=== PATIENT | male | born 1965 | race Caucasian/White ===

== ENCOUNTER 2016-09-10 14:32 | Inpatient (IN) | payer MEDICAID, OTHER ==
[~2016-09-10] VITALS: Ht 177.8 cm; Wt 116.6 kg
[2016-09-10] VITALS (10 sets, daily range): BP systolic 137–176; BP diastolic 68–107
[~2016-09-10 14:32] MED LIST: LACT20SO2 PO; RIFA550T PO; TRM50T PO; ZIPRASIDONE 20 MG INJ (GEODON) VIAL IM ONE
[2016-09-10] MEDS ORDERED: WATER (STERILE) FOR INJECTION 20 ML ONE (14:33)
--- OUTSIDE RECORDS SUMMARY | 2016-09-10 14:40 | XMS REPORT | Continuity of Care Document ---
Author Author [facility] Organization [facility] Address Unknown Phone Unavailable Care Team Providers Care Rn Clinical Review Name Role Phone PCP Unavailable Source Comments Some departments are not documenting in the electronic medical record. If you do not see the information that you expected, contact Release of Information in the Health Information Management department at [phone] for further assistance in locating additional records.[facility] Active Allergies and Adverse Reactions Not on File Current Medications Not on file Active Problems Not on file Social History Tobacco Use Types Packs/Day Years Used Date Never Assessed Plan of Care Health Maintenance Due Date Last Done Comments Hepatitis C Screening 1964 Physical (Comprehensive) 1971 Exam Pertussis Vaccine 1975 Tetanus Vaccine 1981 Colorectal Cancer 2014 Screening Influenza Vaccine 03/11/2016 Results from Last 3 Months Not on file
[2016-09-10] MEDS ORDERED: ZIPRASIDONE 20 MG INJ (GEODON) VIAL IM ONE (14:45)
[2016-09-10 14:49] LABS: BILIRUBIN,URINE NEGATIVE (NEGATIVE); KETONES,URINE 1+ (NEGATIVE); LEUKOCYTE ESTERASE ,URINE 1+ (NEGATIVE); NITRITE,URINE NEGATIVE (NEGATIVE); PH,URINE 6 (5-9); PROTEIN,URINE 2+ (NEGATIVE); UROBILINOGEN,URINE 8 MG/DL (NORMAL)
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
[2016-09-10 15:00] LABS: BASOPHILS % (AUTO) 0 % (0-10); EOSINOPHILS % (AUTO) 0 % (0-10); LYMPHOCYTES # (AUTO) 0.3 X 10^3 (1.0-4.0); LYMPHOCYTES % (AUTO) 3 % (12-44); MEAN CORPUSCULAR HEMOGLOBIN 32 PG (25-34); MEAN CORPUSCULAR HGB CONC 36 G/DL (32-36); MEAN CORPUSCULAR VOLUME 88 FL (80-99); MEAN PLATELET VOLUME 11.2 FL (7.4-10.4); MONOCYTES # (AUTO) 0.8 X 10^3 (0.0-1.0); MONOCYTES % (AUTO) 6 % (0-12); NEUTROPHILS # (AUTO) 12.1 X 10^3 (1.8-7.8); NEUTROPHILS % (AUTO) 91 % (42-75); PLATELET COUNT 45 10^3/uL (130-400); RED BLOOD COUNT 5.31 10^6/uL (4.35-5.85); RED CELL DISTRIBUTION WIDTH 15.8 % (10.0-14.5); WHITE BLOOD COUNT 13.3 10^3/uL (4.3-11.0)
[2016-09-10 15:07] LABS: ALANINE AMINOTRANSFERASE 29 U/L (0-55); ALBUMIN 3.2 G/DL (3.2-4.5); AMMONIA 306 UMOL/L (11-32); ANION GAP 14 MMOL/L (5-14); ASPARTATE AMINO TRANSFERASE 53 U/L (5-34); BILIRUBIN,TOTAL 5.1 MG/DL (0.1-1.0); BLOOD UREA NITROGEN 15 MG/DL (7-18); BUN/CREATININE RATIO 16; CALCIUM 7.4 MG/DL (8.5-10.1); CARBON DIOXIDE 16 MMOL/L (21-32); CHLORIDE 110 MMOL/L (98-107); CREATININE SERUM 0.91 MG/DL (0.60-1.30); GFR ESTIMATED > 60; GLUCOSE 139 MG/DL (70-105); SALICYLATE < 5.0 MG/DL (5.0-20.0); SODIUM 140 MMOL/L (135-145); TOTAL PROTEIN 6.9 G/DL (6.4-8.2)
[2016-09-10 15:13] LABS: TROPONIN I < 0.30 NG/ML (<0.30)
[2016-09-10 15:15] LABS: BAND NEUTROPHILS 17 %; BASOPHILS % (MANUAL) 1 %; EOSINOPHILS % (MANUAL) 0 %; LYMPHOCYTES % (MANUAL) 1 %; NEUTROPHILS % (MANUAL) 76 %
[2016-09-10 15:17] LABS: ACETAMINOPHEN < 10 UG/ML (10-30); ALCOHOL < 10 MG/DL (<10)
[2016-09-10 15:18] LABS: POTASSIUM 5.3 MMOL/L (3.6-5.0)
--- NOTE | 2016-09-10 15:26 | Diagnostic Imaging Report ---
PROCEDURE: CT head without contrast. TECHNIQUE: Multiple contiguous axial images were obtained through the brain without the use of intravenous contrast. INDICATION: Altered mental state. FINDINGS: There is considerable motion artifact. Exam was repeated. The ventricles are not dilated. Cortical gyral pattern is normal. No intracranial hemorrhage is demonstrated. No mass effect is noted. Basal cisterns are clear. Mastoid air cells and paranasal sinuses are clear. No evidence of calvarial fractures. IMPRESSION: Limited study due to motion though no obvious abnormalities are demonstrated. Dictated by: Dictated on workstation # [id number]
--- NOTE | 2016-09-10 15:33 | Diagnostic Imaging Report ---
INDICATION: Unresponsive. COMPARISON: 10/31/2015. FINDINGS: Portable chest shows the lungs to be well-aerated. There are no infiltrates. No masses. The heart is not enlarged. There is no evidence of pulmonary edema. No pneumothorax or pleural effusions. IMPRESSION: Normal portable chest. Dictated by: Dictated on workstation # [id number]
[2016-09-10 16:12] LABS: INR 1.5 (0.8-1.4); PROTHROMBIN TIME PATIENT 17.8 SEC (12.2-14.7)
[2016-09-10] MEDS ORDERED: cefTRIAXone 2 GM/NS 50 ML IVPB IV SCH ×2 (17:30)
[2016-09-10 17:36] LABS: ABG OXYGEN SATURATION 97 % (94-100); ABG PCO2 26 MMHG (35-45); ABG PH 7.45 (7.37-7.43); ABG PO2 79 MMHG (79-93); ABG TCO2 17.9 MMOL/L (21.0-31.0)
[2016-09-10 17:39] LABS: ABG HCO3 17 MMOL/L (23-27)
[2016-09-10 17:40] LABS: ALLENS TEST POSITIVE
[2016-09-10 17:42] LABS: PATIENT TEMP 99.8
[2016-09-10] MEDS ORDERED: ZIPRASIDONE 20 MG INJ (GEODON) VIAL IM PRN (17:45)
[2016-09-10] MEDS ORDERED: CATHETER FLUSH 10 ML SYR IV PRN (17:45)
[2016-09-10] MEDS ORDERED: NS IV 1000 ML 1,000 ML IV ONE ×2 (17:45→19:00)
[2016-09-10] MEDS ORDERED: proPOfol 200 MG/20 ML (DIPRIVAN) VIAL IV ONE (19:28)
[2016-09-10] MEDS: inSUlin ASPART (NovoLOG) 1 UNIT/0.01 ML (CHARGE PER UNIT) SC SCH (20:00)
[2016-09-10] MEDS: PROPOFOL DRIP (ICU) 100 ML IV SCH (20:15)
[2016-09-10] MEDS: D5 NS 1000 ML IV SOLUTION 1,000 ML IV SCH (20:15)
[2016-09-10] MEDS: LACTULOSE SYRUP 10GM/15ML (ENULOSE) 30ML UDC PO SCH ×2 (20:22→21:00)
[2016-09-10] MEDS: fentaNYL INJECTION 100 MCG/2 ML AMP IV PRN (20:23)
[2016-09-10] MEDS ORDERED: FLU TRIvalent (5 YOA+) 2016-17 (AFLURIA) 0.5 ML IM ONE (20:45)
[2016-09-10 20:49] LABS: ABG BASE EXCESS -4.9 MMOL/L (-2.5-2.5); ABG HCO3 19 MMOL/L (23-27); ABG OXYGEN SATURATION 98 % (94-100); ABG PCO2 35 MMHG (35-45); ABG PH 7.37 (7.37-7.43); ABG PO2 113 MMHG (79-93); ABG TCO2 20.4 MMOL/L (21.0-31.0)
[2016-09-10 20:52] LABS: ALLENS TEST POSITIVE; PATIENT TEMP 99.7
--- NOTE | 2016-09-10 20:58 | Diagnostic Imaging Report ---
INDICATION: Status post intubation. COMPARISON: Earlier the same day. EXAMINATION: Single frontal radiographic view of the chest was obtained. FINDINGS: Indwelling endotracheal tube with tip at the clavicular heads. Lungs continue to show low inspiratory volumes. Aeration is otherwise stable. Cardiac silhouette and pulmonary vasculature are stable as well. There is no pneumothorax. Bony structures show no gross acute abnormality. IMPRESSION: Interval intubation with endotracheal tube, as above. Otherwise, stable exam of the chest. Dictated by: Dictated on workstation # [id number]
[2016-09-10] MEDS: CHLORHEXIDINE 0.12% SOLN 15 ML (PERIDEX) UDC PO SCH (21:50)
[2016-09-10] MEDS ORDERED: MIDAZOLAM 5 MG/5 ML (VERSED) VIAL INJ ONE (23:00)
[2016-09-10] MEDS ORDERED: SUCCINYLCHOLINE INJ 100 MG/5 ML SYR INJ ONE (23:00)
[2016-09-11] VITALS (34 sets, daily range): BP systolic 102–166; BP diastolic 57–86
[2016-09-11] MEDS: inSUlin ASPART (NovoLOG) 1 UNIT/0.01 ML (CHARGE PER UNIT) SC SCH ×7 (00:25→23:57)
[2016-09-11] MEDS: RIFAXIMIN 550 MG TABLET (XIFAXAN) PO SCH ×3 (00:31→20:28)
[2016-09-11] MEDS: PROPOFOL DRIP (ICU) 100 ML IV SCH ×3 (00:56→20:26)
[2016-09-11] MEDS: D5 NS 1000 ML IV SOLUTION 1,000 ML IV SCH ×3 (03:22→19:07)
[2016-09-11] MEDS ORDERED: KETOROLAC 30 MG/ML VIAL ONE (04:07)
[2016-09-11] MEDS ORDERED: KETOROLAC 30 MG/ML VIAL IVP ONE (04:15)
[2016-09-11 04:16] LABS: BASOPHILS % (AUTO) 0 % (0-10); EOSINOPHILS % (AUTO) 0 % (0-10); LYMPHOCYTES # (AUTO) 0.5 X 10^3 (1.0-4.0); LYMPHOCYTES % (AUTO) 4 % (12-44); MEAN CORPUSCULAR HEMOGLOBIN 32 PG (25-34); MEAN CORPUSCULAR HGB CONC 36 G/DL (32-36); MEAN CORPUSCULAR VOLUME 89 FL (80-99); MEAN PLATELET VOLUME 10.9 FL (7.4-10.4); MONOCYTES # (AUTO) 0.7 X 10^3 (0.0-1.0); MONOCYTES % (AUTO) 7 % (0-12); NEUTROPHILS % (AUTO) 89 % (42-75); RED BLOOD COUNT 4.67 10^6/uL (4.35-5.85); RED CELL DISTRIBUTION WIDTH 15.9 % (10.0-14.5); WHITE BLOOD COUNT 11.2 10^3/uL (4.3-11.0)
[2016-09-11 04:19] LABS: ABG BASE EXCESS -3.8 MMOL/L (-2.5-2.5); ABG HCO3 20 MMOL/L (23-27); ABG OXYGEN SATURATION 100 % (94-100); ABG PCO2 39 MMHG (35-45); ABG PH 7.36 (7.37-7.43); ABG PO2 181 MMHG (79-93); ABG TCO2 21.3 MMOL/L (21.0-31.0)
[2016-09-11 04:22] LABS: ALLENS TEST ART LINE
[2016-09-11 04:23] LABS: PATIENT TEMP 103.3; PLATELET COUNT 40 10^3/uL (130-400)
[2016-09-11 04:26] LABS: INR 1.8 (0.8-1.4); PROTHROMBIN TIME PATIENT 20.9 SEC (12.2-14.7)
[2016-09-11 04:35] LABS: BILIRUBIN,URINE 1+ (NEGATIVE); KETONES,URINE 1+ (NEGATIVE); LEUKOCYTE ESTERASE ,URINE 2+ (NEGATIVE); NITRITE,URINE POSITIVE (NEGATIVE); PH,URINE 5 (5-9); PROTEIN,URINE 3+ (NEGATIVE); UROBILINOGEN,URINE 1 MG/DL (NORMAL)
[2016-09-11 04:37] LABS: ALANINE AMINOTRANSFERASE 32 U/L (0-55); ALBUMIN 2.6 G/DL (3.2-4.5); AMMONIA 93 UMOL/L (11-32); ANION GAP 8 MMOL/L (5-14); ASPARTATE AMINO TRANSFERASE 64 U/L (5-34); BILIRUBIN,TOTAL 4.4 MG/DL (0.1-1.0); BLOOD UREA NITROGEN 19 MG/DL (7-18); BUN/CREATININE RATIO 19; CALCIUM 7.1 MG/DL (8.5-10.1); CARBON DIOXIDE 18 MMOL/L (21-32); CHLORIDE 116 MMOL/L (98-107); CREATININE SERUM 0.98 MG/DL (0.60-1.30); GFR ESTIMATED > 60; GLUCOSE 127 MG/DL (70-105); MAGNESIUM 1.7 MG/DL (1.8-2.4); PHOSPHORUS 3.7 MG/DL (2.3-4.7); POTASSIUM 4.4 MMOL/L (3.6-5.0); SODIUM 142 MMOL/L (135-145); TOTAL PROTEIN 5.6 G/DL (6.4-8.2)
[2016-09-11 04:37] LABS: SQUAMOUS EPITHELIAL CELL,UR RARE /HPF; WBC,URINE 0-2 /HPF
[2016-09-11 04:43] LABS: TROPONIN I < 0.30 NG/ML (<0.30)
[2016-09-11] MEDS ORDERED: NS (IVPB) 100 ML ONE (05:57)
[2016-09-11] MEDS ORDERED: CALCIUM GLUC. 10% 4.65 MEQ/10 ML VIAL ONE (05:57)
[2016-09-11] MEDS ORDERED: NS IV ONE ×4 (06:00)
[2016-09-11] MEDS: POTASSIUM CL 10MEQ/50ML IVPB 50 ML IV SCH (06:00)
[2016-09-11] MEDS: KCL 20 MEQ TAB (K-DUR) PO SCH (06:00)
[2016-09-11] MEDS: MAGNESIUM 1 GM/100 ML IVPB 100 ML IV SCH ×3 (06:00→07:05)
[2016-09-11] MEDS ORDERED: CALCIUM GLUCONATE IV ONE ×4 (06:00)
[2016-09-11] MEDS ORDERED: NS IV 1000 ML 1,000 ML ONE (08:30)
[2016-09-11] MEDS: LACTULOSE SYRUP 10GM/15ML (ENULOSE) 30ML UDC PO SCH ×3 (08:48→20:28)
[2016-09-11] MEDS: CHLORHEXIDINE 0.12% SOLN 15 ML (PERIDEX) UDC PO SCH ×2 (08:48→20:28)
--- NOTE | 2016-09-11 09:45 | Diagnostic Imaging Report ---
EXAMINATION: Chest radiograph, portable AP view. DATE: September 11, 2016 at 0449 hours. INDICATION: 51-year-old male, dyspnea. COMPARISON: September 10, 2016. FINDINGS: The endotracheal tube is approximately 3.6 cm above the lisa. The nasogastric tube overlies the expected position of the stomach. Stable overall appearance of the cardiomediastinal silhouette accounting for differences in patient positioning and technique. There is no identified pneumothorax. There is no large pleural effusion. There is no identified focal airspace consolidation. Lung volumes are somewhat low. IMPRESSION: 1. Low lung volumes without identified acute cardiopulmonary abnormality. 2. Support lines and tubes as above. Dictated by: Dictated on workstation # [id number]
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
--- NOTE | 2016-09-11 12:18 | Progress Note-Standard ---
Standard Progress Note Final Diagnosis Consulted for intubation and arterial line placement per [facility]. Arrived at bedside pt with labored breathing. Consent signed after discussion with family present in room. Versed 2 mg IV, Propofol 100mg IV, Sux 40 mg IV given followed by grade 1 view and atraumatic placement of 7.5 ETT. +ETCO2, nadia chest rise and breath sounds. VSS. 20 gauge a-line placed to right radial taped and secured theresa well. Report to ICU nurse. HUA GALINDO CRNA Sep 11, 2016 12:18
[2016-09-11] MEDS: cefTRIAXone INJECTION 2,000 MG in NS (IVPB) 50 ML IV SCH (18:10)
[2016-09-11] MEDS ORDERED: LACT20SO2 PO (19:07)
[2016-09-12] VITALS (35 sets, daily range): BP systolic 94–159; BP diastolic 46–79
[2016-09-12] MEDS: PROPOFOL DRIP (ICU) 100 ML IV SCH ×5 (01:22→22:49)
[2016-09-12] MEDS: D5 NS 1000 ML IV SOLUTION 1,000 ML IV SCH ×3 (03:10→19:58)
[2016-09-12] MEDS: inSUlin ASPART (NovoLOG) 1 UNIT/0.01 ML (CHARGE PER UNIT) SC SCH ×5 (04:00→20:00)
[2016-09-12 04:30] LABS: ABG BASE EXCESS -2.8 MMOL/L (-2.5-2.5); ABG HCO3 22 MMOL/L (23-27); ABG OXYGEN SATURATION 99 % (94-100); ABG PCO2 43 MMHG (35-45); ABG PO2 138 MMHG (79-93); ABG TCO2 23.3 MMOL/L (21.0-31.0)
[2016-09-12 04:31] LABS: ALLENS TEST ART LINE; PATIENT TEMP 100.3
[2016-09-12 04:33] LABS: ABG PH 7.33 (7.37-7.43)
[2016-09-12 04:38] LABS: ANION GAP 6 MMOL/L (5-14); BLOOD UREA NITROGEN 26 MG/DL (7-18); BUN/CREATININE RATIO 24; CALCIUM 7.3 MG/DL (8.5-10.1); CARBON DIOXIDE 19 MMOL/L (21-32); CHLORIDE 117 MMOL/L (98-107); GFR ESTIMATED > 60; GLUCOSE 122 MG/DL (70-105); PHOSPHORUS 2.5 MG/DL (2.3-4.7); POTASSIUM 4.2 MMOL/L (3.6-5.0); SODIUM 142 MMOL/L (135-145)
[2016-09-12 04:42] LABS: BASOPHILS % (AUTO) 0 % (0-10); EOSINOPHILS # (AUTO) 0.3 10^3/uL (0.0-0.3); EOSINOPHILS % (AUTO) 3 % (0-10); LYMPHOCYTES % (AUTO) 11 % (12-44); MEAN CORPUSCULAR HEMOGLOBIN 32 PG (25-34); MEAN CORPUSCULAR HGB CONC 35 G/DL (32-36); MEAN CORPUSCULAR VOLUME 91 FL (80-99); MEAN PLATELET VOLUME 10.5 FL (7.4-10.4); MONOCYTES # (AUTO) 1.1 X 10^3 (0.0-1.0); MONOCYTES % (AUTO) 11 % (0-12); NEUTROPHILS # (AUTO) 7.1 X 10^3 (1.8-7.8); NEUTROPHILS % (AUTO) 75 % (42-75); RED BLOOD COUNT 4.33 10^6/uL (4.35-5.85); WHITE BLOOD COUNT 9.5 10^3/uL (4.3-11.0)
[2016-09-12 04:46] LABS: PLATELET COUNT 29 10^3/uL (130-400)
[2016-09-12] MEDS: MAGNESIUM 1 GM/100 ML IVPB 100 ML IV SCH (04:51)
[2016-09-12] MEDS: POTASSIUM CL 10MEQ/50ML IVPB 50 ML IV SCH (04:51)
[2016-09-12] MEDS: KCL 20 MEQ TAB (K-DUR) PO SCH (04:52)
[2016-09-12] MEDS: CHLORHEXIDINE 0.12% SOLN 15 ML (PERIDEX) UDC PO SCH ×2 (08:39→21:53)
[2016-09-12] MEDS: LACTULOSE SYRUP 10GM/15ML (ENULOSE) 30ML UDC PO SCH ×3 (08:39→21:53)
[2016-09-12] MEDS: RIFAXIMIN 550 MG TABLET (XIFAXAN) PO SCH ×2 (08:39→21:53)
--- NOTE | 2016-09-12 10:49 | Diagnostic Imaging Report ---
INDICATION: Dyspnea. Comparison made with prior examination from 09/11/16. FINDINGS: There's cardiomegaly. There is mild venous congestion. ET and NG tubes are in satisfactory position. There is some right basilar atelectasis and/or pneumonitis. There is no pleural effusion or pneumothorax. IMPRESSION: Right basilar subsegmental atelectasis and/or pneumonitis. Cardiomegaly and mild central pulmonary venous congestion. Dictated by: Dictated on workstation # [id number]
--- NOTE | 2016-09-12 14:15 | Progress Note-Hospitalist ---
Standard Progress Note Progress Notes/Assess & Plan Date Seen 09/12/16 Diagnosis Hepatic encephalopathy, presenting ammonia 306. 2.acute on chronic alcoholism with acute liver failure 3.generalized bleeding secondary to effective liver disease on clotting factors. Assess & Plan/Chief Complaint The patient was taken off his sedatives's morning in a hope to test for possibility of ventilator weaning. He thrashed about terribly without evidence of orientation and was therefore placed back on sedation. His vital signs look reasonably good. He has resolved his fever issues. It would be my guess that these were relative to his encephalopathy. Hemoglobin remained stable. White count was 9500. Platelets were noted to be 29,000. The external evidence of bleeding appears much less. Physical exam: The patient is deeply somnolent. Lungs are clear to auscultation. CV was regular without murmur. Abdomen was soft without pain to palpation. 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 Supportive care. Labs Laboratory Tests 09/10/16 14:30 09/11/16 04:00 09/12/16 04:00 MAURA LANG MD Sep 12, 2016 14:15
[2016-09-12] MEDS: cefTRIAXone INJECTION 2,000 MG in NS (IVPB) 50 ML IV SCH (17:39)
[2016-09-12] MEDS: fentaNYL INJECTION 100 MCG/2 ML AMP IV PRN (21:57)
[2016-09-13] VITALS (26 sets, daily range): BP systolic 95–165; BP diastolic 53–80
[2016-09-13] MEDS: fentaNYL INJECTION 100 MCG/2 ML AMP IV PRN ×8 (00:03→16:25)
[2016-09-13] MEDS: D5 NS 1000 ML IV SOLUTION 1,000 ML IV SCH ×2 (03:53→11:52)
[2016-09-13] MEDS: inSUlin ASPART (NovoLOG) 1 UNIT/0.01 ML (CHARGE PER UNIT) SC SCH ×4 (03:58→13:46)
[2016-09-13] MEDS: PROPOFOL DRIP (ICU) 100 ML IV SCH ×3 (04:30→14:27)
[2016-09-13 04:36] LABS: ABG BASE EXCESS -1.4 MMOL/L (-2.5-2.5); ABG HCO3 23 MMOL/L (23-27); ABG OXYGEN SATURATION 93 % (94-100); ABG PCO2 38 MMHG (35-45); ABG PH 7.39 (7.37-7.43); ABG PO2 57 MMHG (79-93); ABG TCO2 23.9 MMOL/L (21.0-31.0)
[2016-09-13 04:38] LABS: ALLENS TEST ART LINE
[2016-09-13 04:41] LABS: BASOPHILS % (AUTO) 0 % (0-10); EOSINOPHILS # (AUTO) 0.3 10^3/uL (0.0-0.3); EOSINOPHILS % (AUTO) 6 % (0-10); LYMPHOCYTES # (AUTO) 0.8 X 10^3 (1.0-4.0); LYMPHOCYTES % (AUTO) 16 % (12-44); MEAN CORPUSCULAR HEMOGLOBIN 32 PG (25-34); MEAN CORPUSCULAR HGB CONC 35 G/DL (32-36); MEAN CORPUSCULAR VOLUME 91 FL (80-99); MEAN PLATELET VOLUME 10.8 FL (7.4-10.4); MONOCYTES # (AUTO) 0.5 X 10^3 (0.0-1.0); MONOCYTES % (AUTO) 11 % (0-12); NEUTROPHILS # (AUTO) 3.3 X 10^3 (1.8-7.8); NEUTROPHILS % (AUTO) 67 % (42-75); RED BLOOD COUNT 3.85 10^6/uL (4.35-5.85); RED CELL DISTRIBUTION WIDTH 15.6 % (10.0-14.5); WHITE BLOOD COUNT 4.9 10^3/uL (4.3-11.0)
[2016-09-13 04:45] LABS: INR 1.6 (0.8-1.4); PROTHROMBIN TIME PATIENT 18.7 SEC (12.2-14.7)
[2016-09-13 04:48] LABS: PLATELET COUNT 29 10^3/uL (130-400)
[2016-09-13 05:02] LABS: ALANINE AMINOTRANSFERASE 40 U/L (0-55); AMMONIA 64 UMOL/L (11-32); ANION GAP 5 MMOL/L (5-14); ASPARTATE AMINO TRANSFERASE 80 U/L (5-34); BILIRUBIN,TOTAL 3.7 MG/DL (0.1-1.0); BLOOD UREA NITROGEN 17 MG/DL (7-18); BUN/CREATININE RATIO 21; CARBON DIOXIDE 21 MMOL/L (21-32); CHLORIDE 117 MMOL/L (98-107); GFR ESTIMATED > 60; GLUCOSE 98 MG/DL (70-105); MAGNESIUM 2.2 MG/DL (1.8-2.4); PHOSPHORUS 2.3 MG/DL (2.3-4.7); POTASSIUM 3.8 MMOL/L (3.6-5.0); SODIUM 143 MMOL/L (135-145); TOTAL PROTEIN 4.6 G/DL (6.4-8.2)
[2016-09-13] MEDS: POTASSIUM CL 10MEQ/50ML IVPB 50 ML IV SCH (05:55)
[2016-09-13] MEDS: KCL 20 MEQ TAB (K-DUR) PO SCH (05:56)
[2016-09-13] MEDS: MAGNESIUM 1 GM/100 ML IVPB 100 ML IV SCH (05:56)
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
[2016-09-13] MEDS: RIFAXIMIN 550 MG TABLET (XIFAXAN) PO SCH (09:56)
[2016-09-13] MEDS: CHLORHEXIDINE 0.12% SOLN 15 ML (PERIDEX) UDC PO SCH (09:56)
[2016-09-13] MEDS: LACTULOSE SYRUP 10GM/15ML (ENULOSE) 30ML UDC PO SCH ×2 (09:56→13:46)
--- NOTE | 2016-09-13 10:46 | Diagnostic Imaging Report ---
Portable erect AP chest at 4:55 AM. INDICATION: Respiratory distress. The heart is enlarged but stable when compared to 09/12/2016. The atelectasis/infiltrate involving the right lung base seen on the prior study has diminished. There is only a small amount of residual density still present in this area. Mild left lower lobe atelectasis/infiltrate is also seen. This is essentially no different than on the prior exam. The upper lungs are clear. The central pulmonary vascularity does not seem to be engorged at this time, and there is no evidence for failure. Mediastinum is not widened. The osseous structures are intact. The ET tube and NG line remain in good position. IMPRESSION: The appearance of the chest has improved somewhat since the prior exam as the right lung base does seem better aerated. There is still mild bibasilar atelectasis/infiltrate. A followup study would be recommended for continued evaluation. Dictated by: Dictated on workstation # [id number]
[2016-09-13] MEDS ORDERED: PANTOPRAZOLE 40 MG/10 ML (PROTONIX) VIAL IV SCH (11:00)
--- NOTE | 2016-09-13 11:06 | Progress Note-Hospitalist ---
Progress Note HPI/CC on Admission The patient is a 51-year-old white male alcoholic known to me from a visit almost one year ago. He presented to the emergency room last night began with a distinct decline in alertness plus agitated behavior. This was egregious enough that he had to be given Geodon for the protection of himself and the staff. Laboratory by my count with his behavior, moderate ascites, bilirubin of 4.4, albumin of 2.6, and INR of 1.8 was consistent with a child. CONTEH liver score of 14 and therefore class C. He was unfortunately intubated during the night. He has begun to show leading from all orifices. He appears agonal. Progress Notes/Assess & Plan Date Seen 09/13/16 Diagonsis/Assessment & Plan Chart Review: Platelets 29k Ammonia 306 sales service professional: RN states that family is unhappy with DNR decision and has stated they are not satisfied with care given to pt, although all measures have been taken to stabilize pt, and pt is in end of life transition. Palliative care has been consulted. Pt is intubated. Dr. Robles spoke with Dr. Arnold regarding pt. Pt family discussion: Dr. Ospina discusses pt's condition with pt's daughters. Daughters are distressed with pt's current state, and are concerned regarding his recovery. Dr. Ospina informs daughters that pt's liver is in failure, and that transplant is not a viable option at this point. Daughter states that pt previously stated that he wished to be full code status. However, daughters have decided that they wish to focus on quality of life for pt, and do not wish to switch pt back to full code if it will result in an uncomfortable state. Dr. Ospina and palliative care discuss the difficulties in predicting pt prognosis, but inform daughters that pt is overall highly unstable and without a simple solution. Daughters will need to call their uncle and other family members, and will do so today. Daughters are very appreciative. Vitals stable, patient in suffering status off sedation and no purposeful movements or response dictating no cognitive ability due to encephalopathy and end-stage liver disease Tachycardic at 96 bpm, coarse breath sounds all chapa Assessment: End-stage liver disease with liver failure Severe thrombocytopenia giving rise to gastrointestinal bleeding Severe hepatic encephalopathy with unrecoverable status Plan: Palliative care [facility] Scribed by Zuhair Coates under the direct supervision of Dr. Ospina. SHELL OSPINA DO Sep 13, 2016 11:06
[2016-09-13] MEDS ORDERED: NS IV 1000 ML 1,000 ML IV PRN (16:55)
[2016-09-13] MEDS ORDERED: NS IV 1000 ML 1,000 ML IV SCH (16:55)
[2016-09-13] MEDS ORDERED: ONDANSETRON 4 MG/2 ML (SDV) Z0FRAN IV PRN (17:00)
[2016-09-13] MEDS ORDERED: ACETAMINOPHEN 650 MG SUPP (TYLENOL) PR PRN (17:00)
[2016-09-13] MEDS ORDERED: RT-ALBUTEROL/IPRATROPIUM 3 ML (DUONEB) VIAL INH PRN (17:00)
[2016-09-13] MEDS ORDERED: SALIVA STIMULANT MOUTH SPRAY (BIOTENE) 1.5 OZ MM PRN (17:00)
[2016-09-13] MEDS ORDERED: GLYCOPYRROLATE 0.2 MG/ML (ROBINUL) 2 ML VIAL IV PRN (17:00)
[2016-09-13] MEDS ORDERED: ARTIFICIAL TEARS OINT (LACRI-LUBE) 3.5 GM TUBE OU PRN (17:00)
[2016-09-13] MEDS ORDERED: diphenhydrAMINE 50 MG/ML INJ (BENADRYL) IV PRN ×2 (17:00)
[2016-09-13] MEDS ORDERED: BISACODYL 10 MG SUPP (DULCOLAX) PR PRN (17:00)
[2016-09-13] MEDS ORDERED: ONDANSETRON 4 MG/2 ML (SDV) Z0FRAN IVP PRN (17:00)
[2016-09-13] MEDS ORDERED: morphine PCA 30 MG/30 ML VIAL IV PRN (17:00)
[2016-09-13] MEDS ORDERED: ARTIFICAL TEARS 0.4 ML UNIT DOSE (REFRESH PLUS) OU PRN (17:00)
[2016-09-13] MEDS ORDERED: NALOXONE 0.4 MG/ML 1 ML (NARCAN) VIAL IV PRN (17:00)
[2016-09-13] MEDS ORDERED: SCOPOLAMINE 1.5 MG (TRANSDERM-SCOP) PATCH TOP SCH (17:00)
[2016-09-13] MEDS ORDERED: LORazepam ORAL CONCENTRATE 2 MG/ML 30 ML (ATIVAN) PO PRN (17:00)
[2016-09-13] MEDS ORDERED: METOCLOPRAMIDE INJ 10 MG/2 ML (REGLAN) IV PRN (17:00)
[2016-09-13] MEDS ORDERED: morphine INJ 10 MG/ML 1ML (SYR OR VIAL) ONE (17:23)
[2016-09-13] MEDS: morphine INJ 4 MG/ML 1 ML (VIAL/SYRINGE) IVP PRN ×2 (20:31→21:48)
[2016-09-14] MEDS: LORazepam INJ 2 MG/ML (ATIVAN) VIAL IVP PRN ×5 (00:05→13:31)
[2016-09-14] MEDS: morphine INJ 4 MG/ML 1 ML (VIAL/SYRINGE) IVP PRN ×4 (05:48→13:19)
[2016-09-14] MEDS ORDERED: SENNA W/DOCUSATE (SENOKOT S) TABLET PO SCH (09:00)
--- NOTE | 2016-09-14 10:57 | Progress Note-Hospitalist ---
Progress Note HPI/CC on Admission The patient is a 51-year-old white male alcoholic known to me from a visit almost one year ago. He presented to the emergency room last night began with a distinct decline in alertness plus agitated behavior. This was egregious enough that he had to be given Geodon for the protection of himself and the staff. Laboratory by my count with his behavior, moderate ascites, bilirubin of 4.4, albumin of 2.6, and INR of 1.8 was consistent with a child. CONTEH liver score of 14 and therefore class C. He was unfortunately intubated during the night. He has begun to show leading from all orifices. He appears agonal. Progress Notes/Assess & Plan Date Seen 09/14/16 Diagonsis/Assessment & Plan field examiner: RN states that pt is on comfort care. Pt can move his arm and mumbles, but is not alert. Pt is receiving Ativan q2 hours, but is seeming to last for only 1 hour. Patient Interview: Pt's daughters state that pt is breathing with more difficulty today. Pt was alert and speaking lightly last night, but is now unable to talk. Pts daughters state that they feel that pt is comfortable. Palliative care discusses future care options with daughters, including NH with hospice or home with hospice. Pts daughters think that pt will today or tomorrow, but palliative care urges pts family to consider options in case pt continues to live. Pt's daughter is very appreciative of [facility] staff. tachypnea, uncomfortable, delirious, nonpurposeful movement Assessment: End-stage liver disease with liver failure Severe thrombocytopenia giving rise to gastrointestinal bleeding Severe hepatic encephalopathy with unrecoverable status Plan: Palliative care [facility] Scribed by Zuhair Coates under the direct supervision of Dr. Wallace. SHELL WALLACE DO Sep 14, 2016 10:57 SHELL WALLACE DO Sep 14, 2016 10:57
[2016-09-14 11:46] LABS: HCV INDEX >11.00 (0.00-0.79)
[2016-09-15 07:08] LABS: HIV 1/2 INTERP See Footnote; HIV AG AB SCREEN Non-Reactive (Non-Reactive)
--- NOTE | 2016-09-15 08:28 | Discharge Summary-Hospitalist ---
Diagnosis/Chief Complaint Date of Admission Sep 10, 2016 at 16:11 Date of Discharge Sep 15, 2016 at 02:14 Admission Diagnosis Hepatic encephalopathy, presenting ammonia 306. 2.acute on chronic alcoholism with acute liver failure 3.generalized bleeding secondary to effective liver disease on clotting factors. Discharge Diagnosis Hepatic encephalopathy, presenting ammonia 306. 2.acute on chronic alcoholism with acute liver failure 3.generalized bleeding secondary to end stage liver disease deficient of clotting factors. aviation medicine specialist: RN states that pt is on comfort care. Pt can move his arm and mumbles, but is not alert. Pt is receiving Ativan q2 hours, but is seeming to last for only 1 hour. Patient Interview: Pt's daughters state that pt is breathing with more difficulty today. Pt was alert and speaking lightly last night, but is now unable to talk. Pts daughters state that they feel that pt is comfortable. Palliative care discusses future care options with daughters, including NH with hospice or home with hospice. Pts daughters think that pt will today or tomorrow, but palliative care urges pts family to consider options in case pt continues to live. Pt's daughter is very appreciative of [facility] staff. tachypnea, uncomfortable, delirious, nonpurposeful movement Assessment: End-stage liver disease with liver failure Severe thrombocytopenia giving rise to gastrointestinal bleeding Severe hepatic encephalopathy with unrecoverable status Plan: Palliative care [facility] Scribed by Zuhair Coates under the direct supervision of Dr. Wallace. Reason Hospital Visit/Course The patient is a 51-year-old white male alcoholic known to me from a visit almost one year ago. He presented to the emergency room last night began with a distinct decline in alertness plus agitated behavior. This was egregious enough that he had to be given Geodon for the protection of himself and the staff. Laboratory by my count with his behavior, moderate ascites, bilirubin of 4.4, albumin of 2.6, and INR of 1.8 was consistent with a child. CONTEH liver score of 14 and therefore class C. He was unfortunately intubated during the night. He has begun to show leading from all orifices. He appears agonal. Hospital course: Patient was placed on comfort care and was kept as comfortable as possible and family was in agreement with the plan and he peacefully with family at the bedside at 0215 on 3/8/17. Discharge Summary Discharge Physical Examination Allergies: Coded Allergies: No Known Drug Allergies (Unverified , 05/14/13) Vitals & I&Os Vital Signs Date Time Temp Pulse Resp B/P Pulse Ox O2 Delivery O2 Flow Rate FiO2 09/15/16 02:20 0 09/14/16 09:00 95 21.00 09/13/16 19:00 97.7 107 145/65 Room Air 09/13/16 16:00 21 Hospital Course Labs (last 24 hrs) Microbiology 09/11/16 Blood Culture - Preliminary, Resulted No growth 09/11/16 Influenza Types A,B Antigen (FRANCESCA) - Final, Complete 09/11/16 Urine Culture - Final, Complete NO GROWTH Discharge Home Medications: Active Scripts Active Reported Lactulose 20 Gm/30 Ml Solution 20 Gm PO TID Instructions to patient/family Please see electonic discharge instructions given to patient. Clinical Quality Measures DVT/VTE Risk/Contraindication: Risk Factor Score Per Nursin RFS Level Per Nursing on Admit: 4+=Very High SHELL WALLACE DO Sep 15, 2016 08:28
[2016-09-16] MEDS ORDERED: SCOPOLAMINE PATCH REMOVAL TP SCH (16:59)
== END 2016-09-15 02:14 | disposition expired | DRG 434 ==
LOC: EDUNIT# 14:32 → ER 14:36 → ICU 16:11 → 4TH 09-13 21:30
PROVIDERS: ADMIT Internal Medicine; ATTEND Internal Medicine
PROC: 5A1945Z Respiratory Ventilation, 24-96 Consecutive Hours (ICD-10-PCS; principal; 2016-09-10)
DX: K70.40 Alcoholic hepatic failure without coma (principal); K70.31 Alcoholic cirrhosis of liver with ascites; F10.20 Alcohol dependence, uncomplicated; B19.20 Unspecified viral hepatitis C without hepatic coma; D69.6 Thrombocytopenia, unspecified; R58 Hemorrhage, not elsewhere classified; I10 Essential (primary) hypertension; Z51.5 Encounter for palliative care
CPT/HCPCS: 36415; 51702; 70450; 71010; 80048; 80053; 80306; 80320; 80329; 81000; 82140; 82805; 82962; 83735; 84100; 84145; 84484; 85007; 85025; 85027; 85610; 86701; 86703; 86803; 87040; 87088; 87350; 87804; 93005; 93041; 94002; 94003; 94799; 96372